=== PATIENT | female | born 1975 | race Caucasian/White ===

== ENCOUNTER 2016-11-05 13:48 | Emergency (ER) | payer OTHER ==
[2016-11-05] MEDS ORDERED: KETOROLAC 30 MG/ML 1 ML VIAL IVP STA (15:53)
[2016-11-05] MEDS ORDERED: DIAZEPAM 5 MG/ML 2 ML SYRINGE IVP STA (15:54)
--- NOTE | 2016-11-05 17:08 | XR ---
EXAMINATION TYPE: XR ribs RT w pa chest xray DATE OF EXAM: 11/05/2016 4:40 PM COMPARISON: NONE HISTORY: Right rib pain TECHNIQUE: 5 views FINDINGS: Heart and mediastinum are normal. Lungs are clear. There is no sign of pleural effusion or pneumothorax. I see no rib fracture. IMPRESSION: Normal right rib exam.
--- NOTE | 2016-11-05 17:24 | ED ---
General Adult HPI - General Chief complaint: Abdominal Pain Stated complaint: R flank pain Time Seen by Provider: 11/05/16 15:28 Source: patient Mode of arrival: ambulatory Limitations: no limitations - History of Present Illness Initial comments: 41-year-old female presented for evaluation of right rib pain for the last couple months. She states that her pain is progressively been worsening since she moved to [place] and believes that she either poor muscle or broke a rib while moving materials back and forth. She states that her pain initially wasn't very bad but is progressively worsened and that is why she is presenting today She has tried Tylenol and Motrin for pain without relief. She states there is no associated chest pain or shortness of breath with this pain and it is worse with movements. There is no overlying redness or discoloration. She denies abdominal pain, dysuria, constipation, diarrhea. - Related Data Home Medications Medication Instructions Recorded Confirmed Amitriptyline HCl 10 mg PO HS 11/05/16 11/05/16 Fluticasone Nasal Mize [Flonase 2 spr EA NOSTRIL DAILY 11/05/16 11/05/16 Nasal Mize] Levothyroxine Sodium [Synthroid] 75 mcg PO DAILY 11/05/16 11/05/16 Sertraline [Zoloft] 50 mg PO DAILY 11/05/16 11/05/16 Previous Rx's Medication Instructions Recorded Acetaminophen-Codeine 300-30mg 1 tab PO Q6H PRN #10 tablet 11/05/16 [Tylenol #3] Ibuprofen [Motrin] 800 mg PO Q8HR PRN #20 tab 11/05/16 Allergies Allergy/AdvReac Type Severity Reaction Status Date / Time Penicillins Allergy Rash/Hives Verified 11/05/16 15:55 Review of Systems ROS Statement: Those systems with pertinent positive or pertinent negative responses have been documented in the HPI. ROS Other: All systems not noted in ROS Statement are negative. Constitutional: Denies: fever, chills Eyes: Denies: eye pain, vision change ENT: Denies: ear pain, throat pain Respiratory: Denies: cough, dyspnea, wheezes, hemoptysis, stridor Cardiovascular: Denies: chest pain, palpitations Endocrine: Denies: fatigue, polydipsia, polyuria Gastrointestinal: Denies: abdominal pain, nausea, vomiting, diarrhea, constipation Genitourinary: Denies: urgency, dysuria, frequency, hematuria Musculoskeletal: Reports: back pain, other (Right-sided chest wall pain at ribs 9 and 10 with radiation around to the back). Denies: myalgia Skin: Denies: rash, lesions Neurological: Denies: headache, weakness Psychiatric: Denies: anxiety, depression Hematological/Lymphatic: Denies: easy bleeding, easy bruising Past Medical History Past Medical History: Thyroid Disorder History of Any Multi-Drug Resistant Organisms: None Reported Past Surgical History: Cholecystectomy, Hysterectomy, Tubal Ligation, Uterine Ablation Past Psychological History: No Psychological Hx Reported Smoking Status: Current every day smoker Past Alcohol Use History: Rare Past Drug Use History: None Reported General Exam Limitations: no limitations General appearance: alert, in no apparent distress Head exam: Present: atraumatic, normocephalic, normal inspection Eye exam: Present: normal appearance, PERRL, EOMI. Absent: scleral icterus, conjunctival injection, periorbital swelling ENT exam: Present: normal exam, mucous membranes moist Neck exam: Present: normal inspection. Absent: tenderness, meningismus, lymphadenopathy Respiratory exam: Present: normal lung sounds bilaterally. Absent: respiratory distress, wheezes, rales, rhonchi, stridor Cardiovascular Exam: Present: regular rate, normal rhythm, normal heart sounds. Absent: systolic murmur, diastolic murmur, rubs, gallop, clicks GI/Abdominal exam: Present: soft, normal bowel sounds. Absent: distended, tenderness, guarding, rebound, rigid Rectal exam: Present: deferred Extremities exam: Present: normal inspection, full ROM, normal capillary refill. Absent: tenderness, pedal edema, joint swelling, calf tenderness Back exam: Present: full ROM, tenderness Neurological exam: Present: alert, oriented X3, CN II-XII intact. Absent: altered Psychiatric exam: Present: normal affect, normal mood Skin exam: Present: warm, dry, intact, normal color. Absent: rash Course Vital Signs 11/05/16 11/05/16 11/05/16 14:01 16:48 17:47 Temperature 98.1 F 98 F Pulse Rate 63 82 58 L Respiratory 20 18 16 Rate Blood Pressure 125/84 102/74 104/55 O2 Sat by Pulse 98 99 98 Oximetry EKG Findings - EKG Comments: EKG Findings:: Sinus bradycardia with ventricular rate of 54, EAMON 180, QRS 96, QT/QTc 436/413. Medical Decision Making - Medical Decision Making 41-year-old female presented for evaluation of right-sided lower rib pain with radiation around to her back. She states it started about 2 months ago when she was moving from [place] to [place]. Since then the pain is progressively worsened causing her to come to the ED today. On physical examination there is no discoloration of the overlying skin and no crepitus palpated. Chest x-ray showed no acute process and EKG was within normal limits. The patient was informed of these results and on reevaluation had improvement in her symptoms. She was advised follow-up with her primary care physician but to return if her symptoms should worsen or persist. She acknowledged an understanding of this information and agreed with this plan of care. Disposition Clinical Impression: Rib pain on right side Disposition: HOME SELF-CARE Condition: Stable Instructions: Chest Pain (ED), Costochondritis (ED) Additional Instructions: Please use medication as discussed. Please follow up with family doctor if symptoms have not improved over the next two days. Please return to the emergency room if your symptoms increase or worsen or for any other concerns. Prescriptions: Acetaminophen-Codeine 300-30mg [Tylenol #3] 1 tab PO Q6H PRN #10 tablet PRN Reason: Pain Ibuprofen [Motrin] 800 mg PO Q8HR PRN #20 tab PRN Reason: Analgesia Referrals: None,Stated [Primary Care Provider] - 1-2 days Time of Disposition: 17:24
[2016-11-05 17:47] VITALS: BP 104/55; PULSE 58; RESP 16; TEMP 98
== END 2016-11-05 17:50 | disposition home or self-care (01) ==
LOC: EC 13:48
DX: R07.81 Pleurodynia (principal); E07.9 Disorder of thyroid, unspecified; F17.200 Nicotine dependence, unspecified, uncomplicated; Z88.0 Allergy status to penicillin; Z79.899 Other long term (current) drug therapy
CPT/HCPCS: 99284 ×2; 96374 ×2; 96375 ×2; 93005; 71101; J3360; J1885

== ENCOUNTER 2017-05-16 10:21 | Emergency (ER) | payer OTHER ==
[2017-05-16] MEDS ORDERED: ACETAMINOPHEN TAB 325 MG TAB PO STA (11:16)
--- NOTE | 2017-05-16 11:23 | ED ---
General Adult HPI - General Chief complaint: Recheck/Abnormal Lab/Rx Stated complaint: muscle pain all over, dizzy, nausea Time Seen by Provider: 05/16/17 10:54 Source: patient Mode of arrival: wheelchair Limitations: no limitations - History of Present Illness Initial comments: Patient is a 41-year-old female presents with a chief complaint of generalized malaise since Sunday. Patient states that she cannot identify an inciting incident. She denies any sick contacts. She states that stress may make her symptoms worse. There are no alleviating factors. Timing is constant. Patient states that she recently moved to the area, does not have a primary care doctor. Patient states that she is supposed to be taking levothyroxine, 75 g per day and Zoloft though she has not had any money to refill these. Patient does not have any other significant medical history. On initial evaluation, patient is in no acute distress. - Related Data Home Medications Medication Instructions Recorded Confirmed Ibuprofen [Motrin] 200 - 400 mg PO Q6HR PRN 05/16/17 05/16/17 Naproxen Sodium [Aleve] 220 mg PO BID PRN 05/16/17 05/16/17 Previous Rx's Medication Instructions Recorded Levothyroxine Sodium [Levo-T] 75 mcg PO DAILY #30 tablet 05/16/17 Allergies Allergy/AdvReac Type Severity Reaction Status Date / Time Penicillins Allergy Rash/Hives Verified 05/16/17 11:27 Review of Systems ROS Statement: Those systems with pertinent positive or pertinent negative responses have been documented in the HPI. ROS Other: All systems not noted in ROS Statement are negative. Constitutional: Reports: chills. Denies: fever Eyes: Denies: vision change ENT: Denies: throat pain Respiratory: Reports: cough. Denies: dyspnea Cardiovascular: Denies: chest pain Endocrine: Reports: fatigue Gastrointestinal: Reports: nausea. Denies: abdominal pain, vomiting Genitourinary: Reports: frequency Musculoskeletal: Denies: back pain Skin: Denies: rash Neurological: Denies: headache Psychiatric: Reports: as per HPI Past Medical History Past Medical History: Thyroid Disorder History of Any Multi-Drug Resistant Organisms: None Reported Past Surgical History: Cholecystectomy, Hysterectomy, Tubal Ligation, Uterine Ablation Past Psychological History: No Psychological Hx Reported Smoking Status: Current every day smoker Past Alcohol Use History: Rare Past Drug Use History: None Reported General Exam Limitations: no limitations General appearance: alert, in no apparent distress Head exam: Present: atraumatic, normocephalic Eye exam: Present: normal appearance ENT exam: Present: normal exam, mucous membranes moist Neck exam: Present: normal inspection. Absent: lymphadenopathy Respiratory exam: Present: normal lung sounds bilaterally. Absent: respiratory distress Cardiovascular Exam: Present: regular rate, normal rhythm, normal heart sounds GI/Abdominal exam: Present: soft. Absent: distended, tenderness, guarding Rectal exam: Present: deferred Extremities exam: Present: normal inspection Back exam: Present: normal inspection Neurological exam: Present: alert, oriented X3, CN II-XII intact, normal gait Psychiatric exam: Present: normal affect, normal mood Skin exam: Present: warm, dry, intact Course Vital Signs 05/16/17 05/16/17 05/16/17 10:29 11:47 12:50 Temperature 98.7 F 97.6 F 97.9 F Pulse Rate 82 73 70 Respiratory 20 20 14 Rate Blood Pressure 110/77 114/68 86/53 O2 Sat by Pulse 99 96 97 Oximetry Medical Decision Making - Medical Decision Making Patient is a 41-year-old female presents with a chief complaint of malaise since Sunday. On initial evaluation, vital signs stable. Patient is in no acute distress. We'll check basic labs, TSH, and influenza PCR. Patient will get 2 L of IV fluid in the emergency department. 1:15 PM Lab evaluation this patient is unremarkable except for a TSH 21 which is consistent with patient's history of hypothyroidism, currently untreated. I discussed the patient's previous regimen, she states that she was on 75 g of levothyroxine daily. At this time given the patient has stable vital signs, and appears clinically well, I feel it is appropriate to prescribe this patient her previous dose of levothyroxine and set her up with primary care so that she can have further care provided. I discussed the care plan with the patient, at this time, she is agreeable. I have answered her questions to the best of my ability, this time, patient is stable for discharge. She is instructed to follow-up with primary care, or to return to the emergency department if her symptoms worsen or change in anyway. - Lab Data Result diagrams: 05/16/17 11:25 05/16/17 11:25 Lab Results 05/16/17 05/16/17 05/16/17 Range/Units 11:25 11:25 11:25 WBC 10.8 H (3.8-10.6) k/uL RBC 4.92 (3.80-5.40) m/uL Hgb 14.9 (11.4-16.0) gm/dL Hct 46.1 H (34.0-46.0) % MCV 93.8 (80.0-100.0) fL MCH 30.3 (25.0-35.0) pg MCHC 32.3 (31.0-37.0) g/dL RDW 15.4 (11.5-15.5) % Plt Count 194 (150-450) k/uL Neutrophils % 72 % Lymphocytes % 21 % Monocytes % 3 % Eosinophils % 3 % Basophils % 1 % Neutrophils # 7.8 H (1.3-7.7) k/uL Lymphocytes # 2.3 (1.0-4.8) k/uL Monocytes # 0.3 (0-1.0) k/uL Eosinophils # 0.3 (0-0.7) k/uL Basophils # 0.1 (0-0.2) k/uL Sodium 136 L (137-145) mmol/L Potassium 4.3 (3.5-5.1) mmol/L Chloride 105 (98-107) mmol/L Carbon Dioxide 25 (22-30) mmol/L Anion Gap 6 mmol/L BUN 11 (7-17) mg/dL Creatinine 1.04 (0.52-1.04) mg/dL Est GFR (MDRD) Af Amer >60 (>60 ml/min/1.73 sqM) Est GFR (MDRD) Non-Af 58 (>60 ml/min/1.73 sqM) Glucose 76 (74-99) mg/dL Calcium 8.5 (8.4-10.2) mg/dL TSH 21.100 H (0.465-4.680) mIU/L Urine Color Urine Appearance (Clear) Urine pH (5.0-8.0) Ur Specific [place] (1.001-1.035) Urine Protein (Negative) Urine Glucose (UA) (Negative) Urine Ketones (Negative) Urine Blood (Negative) Urine Nitrite (Negative) Urine Bilirubin (Negative) Urine Urobilinogen (<2.0) mg/dL Ur Leukocyte Esterase (Negative) Influenza Type A RNA Not Detected (Not Detectd) Influenza Type B (PCR) Not Detected (Not Detectd) 05/16/17 Range/Units 11:30 WBC (3.8-10.6) k/uL RBC (3.80-5.40) m/uL Hgb (11.4-16.0) gm/dL Hct (34.0-46.0) % MCV (80.0-100.0) fL MCH (25.0-35.0) pg MCHC (31.0-37.0) g/dL RDW (11.5-15.5) % Plt Count (150-450) k/uL Neutrophils % % Lymphocytes % % Monocytes % % Eosinophils % % Basophils % % Neutrophils # (1.3-7.7) k/uL Lymphocytes # (1.0-4.8) k/uL Monocytes # (0-1.0) k/uL Eosinophils # (0-0.7) k/uL Basophils # (0-0.2) k/uL Sodium (137-145) mmol/L Potassium (3.5-5.1) mmol/L Chloride (98-107) mmol/L Carbon Dioxide (22-30) mmol/L Anion Gap mmol/L BUN (7-17) mg/dL Creatinine (0.52-1.04) mg/dL Est GFR (MDRD) Af Amer (>60 ml/min/1.73 sqM) Est GFR (MDRD) Non-Af (>60 ml/min/1.73 sqM) Glucose (74-99) mg/dL Calcium (8.4-10.2) mg/dL TSH (0.465-4.680) mIU/L Urine Color Light Yellow Urine Appearance Clear (Clear) Urine pH 6.0 (5.0-8.0) Ur Specific [place] 1.007 (1.001-1.035) Urine Protein Negative (Negative) Urine Glucose (UA) Negative (Negative) Urine Ketones Negative (Negative) Urine Blood Negative (Negative) Urine Nitrite Negative (Negative) Urine Bilirubin Negative (Negative) Urine Urobilinogen <2.0 (<2.0) mg/dL Ur Leukocyte Esterase Negative (Negative) Influenza Type A RNA (Not Detectd) Influenza Type B (PCR) (Not Detectd) Disposition Clinical Impression: Fatigue, Hypothyroidism Disposition: HOME SELF-CARE Condition: Good Prescriptions: Levothyroxine Sodium [Levo-T] 75 mcg PO DAILY #30 tablet Referrals: Gilbert Huffman MD [REFERRING] - 1-2 days
[2017-05-16 11:52] LABS: Basophils # (A) 0.1 k/uL (0-0.2); Basophils % (A) 1 %; CH 31.6; Eosinophils # (A) 0.3 k/uL (0-0.7); Eosinophils % (A) 3 %; HCT 46.1 % (34.0-46.0); HDW 2.39; HGB 14.9 gm/dL (11.4-16.0); Luc % (Auto) 1; Lymphocytes # (A) 2.3 k/uL (1.0-4.8); Lymphocytes % (A) 21 %; MCH 30.3 pg (25.0-35.0); MCHC 32.3 g/dL (31.0-37.0); MCV 93.8 fL (80.0-100.0); Mean Platelet Volume 7.7; Monocytes # (A) 0.3 k/uL (0-1.0); Monocytes % (A) 3 %; Neutrophils # (A) 7.8 k/uL (1.3-7.7); Neutrophils % (A) 72 %; RBC 4.92 m/uL (3.80-5.40); RDW 15.4 % (11.5-15.5); WBC 10.8 k/uL (3.8-10.6); WBC (Perox) 11.06
[2017-05-16 12:09] LABS: Anion Gap 6 mmol/L; Blood Urea Nitrogen 11 mg/dL (7-17); Calcium 8.5 mg/dL (8.4-10.2); Carbon Dioxide 25 mmol/L (22-30); Chloride 105 mmol/L (98-107); Glucose 76 mg/dL (74-99); Non-African American GFR(MDRD) 58 (>60 ml/min/1.73 sqM); Potassium 4.3 mmol/L (3.5-5.1); Sodium 136 mmol/L (137-145)
[2017-05-16 12:11] LABS: Appearance,Urine Clear (Clear); Bilirubin,Urine Negative (Negative); Glucose,Urine (UA) Negative (Negative); Ketones,Urine Negative (Negative); Leukocyte Esterase,Urine Negative (Negative); Nitrite,Urine Negative (Negative); Protein,Urine Negative (Negative); Specific Gravity,Urine 1.007 (1.001-1.035); UA Billing (MACRO vs. MICRO) CHEM; Urobilinogen,Urine <2.0 mg/dL (<2.0)
[2017-05-16] MEDS ORDERED: SODIUM CHLORIDE 0.9% 2,000 ML IV STA (13:03)
[2017-05-16 13:47] VITALS: BP 100/66; PULSE 65; RESP 16; TEMP 98
== END 2017-05-16 13:54 | disposition home or self-care (01) ==
LOC: EC 10:21
DX: R53.83 Other fatigue (principal); R42 Dizziness and giddiness; R11.0 Nausea; E03.9 Hypothyroidism, unspecified; F17.200 Nicotine dependence, unspecified, uncomplicated; Z88.0 Allergy status to penicillin
CPT/HCPCS: 36415; 80048; 81003; 84439; 84443; 85025; 87502; 96360; 99284